=== PATIENT | female | born 2000 | race Caucasian/White ===

== ENCOUNTER 2023-08-24 06:27 | Day surgery (SDC) | payer SELFPAY ==
[2023-08-24] MEDS ORDERED: Dexamethasone 4 MG/ML SDV ONE (07:22)
[2023-08-24] MEDS ORDERED: Neostigmine Methylsulfate 10 MG/10 ML MDV ONE (07:22)
[2023-08-24] MEDS ORDERED: Ondansetron 4 MG/2 ML SDV ONE (07:22)
[2023-08-24] MEDS ORDERED: Rocuronium 50 MG/5 ML Vial ONE (07:22)
[2023-08-24] MEDS ORDERED: Propofol 200 MG/20 ML SDV ONE (07:22)
[2023-08-24] MEDS ORDERED: Glycopyrrolate 0.2 MG/ML 5 ML MDV ONE (07:22)
[2023-08-24] MEDS ORDERED: fentaNYL 250 MCG/5 ML SDV ONE (07:22)
[2023-08-24 07:30] LABS: BASOPHILS PERCENT AUTO 0.3 % (0.1-1.3); EOSINOPHILS PERCENT AUTO 1.5 % (0.0-5.4); HEMATOCRIT 38.9 % (34.3-46.0); HEMOGLOBIN 13.6 g/dL (11.2-15.5); IMMATURE GRAN PERCENT AUTO 0.1 % (0.0-0.7); LYMPHOCYTES ABSOLUTE AUTO 2.62 K/uL (0.8-3.3); LYMPHOCYTES PERCENT AUTO 38.5 % (11.4-47.7); MEAN CORPUSCULAR HEMOGLOBIN 32.2 pg (31.6-35.5); MONOCYTES ABSOLUTE AUTO 0.55 K/uL (0.20-0.90); MONOCYTES PERCENT AUTO 8.1 % (3.3-12.6); NEUTROPHILS ABSOLUTE AUTO 3.51 K/uL (1.0-7.6); NEUTROPHILS PERCENT AUTO 51.5 % (40.0-78.1); PLATELET COUNT,PLT 262 K/uL (130-375); RED BLOOD CELL COUNT 4.23 M/uL (3.77-5.24); WHITE BLOOD CELL COUNT,WBC 6.8 K/uL (3.2-11.0)
[2023-08-24 07:38] LABS: BASOPHILS ABSOLUTE AUTO 0.02 K/uL (0.00-0.10); IMMATURE GRAN ABSOLUTE AUTO 0.01 K/uL (0.00-0.23)
[2023-08-24] MEDS: Sodium Chloride 0.9% 1,000 ML IV SCH (07:43)
[2023-08-24 07:51] LABS: A/G RATIO 1.2 (1.2-2.2); ALANINE AMINOTRANSFERASE,ALT 23 U/L (12-78); ALBUMIN 4.1 g/dL (3.4-5.0); ALKALINE PHOSPHATASE 86 U/L (46-116); ASPARTATE AMNIOTRANSFERASE,AST 14 U/L (15-37); BILIRUBIN TOTAL 0.6 mg/dL (0.2-1.0); BLOOD UREA NITROGEN,BUN 11 mg/dL (7-18); CALCIUM 8.8 mg/dL (8.5-10.1); CARBON DIOXIDE,CO2 28 mmol/L (21-32); CHLORIDE,CL 105 mmol/L (100-108); CREATININE 0.7 mg/dL (0.6-1.0); ESTIMATED GFR 125 mL/min (>60); GLUCOSE RANDOM 88 mg/dL (74-106); POTASSIUM,K 3.8 mmol/L (3.6-5.2); PROTEIN TOTAL,TP 7.4 g/dL (6.4-8.2); SODIUM,NA 139 mmol/L (140-148)
[2023-08-24] MEDS: ceFAZolin 2 GM in Premix Bag 1 BAG IV ONE (07:52)
[2023-08-24 07:54] LABS: ANION GAP 9.8 mmol/L (5.0-14.0)
[2023-08-24] MEDS: metroNIDAZOLE/Normal Saline 500 MG in Premix Bag 1 BAG IV ONE (08:15)
[2023-08-24] MEDS ORDERED: Indocyanine Green 25 MG SDV ONE (08:19)
[2023-08-24] MEDS: Indocyanine Green 25 MG SDV IV ONE (08:23)
[2023-08-24] MEDS: Ropivacaine 30 ML, dexAMETHasone 8 MG, EPINEPHrine 0.4 MG, Sodium Chloride 0.9% 47.6 ML NERVRT SCH (08:24)
[2023-08-24] MEDS ORDERED: Ketorolac 30 MG/ML SDV ONE (08:25)
[2023-08-24] MEDS: Lidocaine 1% with EPINEPHrine 1:100,000 50 ML MDV ONE (08:30)
[2023-08-24] MEDS: Bupivacaine 0.5% 50 ML MDV ONE (08:30)
[2023-08-24] MEDS ORDERED: fentaNYL 100 MCG/2 ML SDV ONE (09:09)
[2023-08-24] MEDS: Acetaminophen/HYDROcodone 325-5 MG Tab PO PRN (11:21)
== END 2023-08-24 12:25 | disposition home or self-care (01) ==
LOC: JP.SDS 06:27
PROVIDERS: ATTEND Surgery
DX: K81.1 Chronic cholecystitis (principal); F32.A Depression, unspecified
CPT/HCPCS: 00790; 36415; 47562; 80053; 81025; 85025; A9270; J0171; J0665; J0690; J1100; J1596; J1836; J1885; J2405; J2704; J2710; J2795; J3010; J3490; J7030

== ENCOUNTER 2023-10-27 06:38 | Day surgery (SDC) | payer SELFPAY ==
[2023-10-27] MEDS ORDERED: Propofol 200 MG/20 ML SDV ONE (07:24)
[2023-10-27] MEDS ORDERED: fentaNYL 100 MCG/2 ML SDV ONE (07:24)
[2023-10-27] MEDS ORDERED: Midazolam 1 MG/ML 2 ML SDV ONE (07:24)
[2023-10-27] MEDS: Sodium Chloride 0.9% 1,000 ML IV SCH (07:33)
== END 2023-10-27 10:24 | disposition home or self-care (01) ==
LOC: JP.SDS 06:38
PROVIDERS: ATTEND Surgery
DX: R10.13 Epigastric pain (principal); K21.9 Gastro-esophageal reflux disease without esophagitis; F32.A Depression, unspecified
CPT/HCPCS: 43239; J2250; J2704; J3010; J7030; 88305